=== PATIENT | male | born 1945 | race Caucasian/White ===

== ENCOUNTER 2019-10-08 17:43 | Inpatient (IN) | payer MEDICARE, BC ==
[2019-10-08] VITALS (76 sets, daily range): BP systolic 141; BP diastolic 72; PULSE 86; TEMP 98.2; O2SAT 86–100
[~2019-10-08] VITALS: Ht 188 cm; Wt 97.6 kg
[2019-10-08 18:05] LABS: BASO # 0.1 (0.0-0.2); BASO % 1.1 % (0.0-2.0); EOS # 0.1 (0.0-0.7); EOS % 1.1 % (0-4.0); GRAN # 4.9 (1.4-6.5); GRAN % 64.8 % (42.2-75.2); HEMATOCRIT 43.3 % (42.0-52.0); HEMOGLOBIN 14.9 g/dl (13.5-18.0); LYMPH # 1.7 (1.2-3.4); LYMPH % 22.7 % (20.0-51.0); MEAN CELL VOLUME 97 fl (80.0-100.0); MEAN CORPUSCULAR HEMOGLOBIN 33 pg (27.0-31.0); MEAN CORPUSCULAR HGB CONC 34 g/dl (33.0-37.0); MEAN PLATELET VOLUME 8.9 fl (7.4-10.4); MONO # 0.8 (0.1-0.6); PLATELET COUNT 216 K/mm3 (130-400); RED BLOOD COUNT 4.47 M/mm3 (4.20-5.60); REDCELL DISTRIBUTION WIDTH-CV 12.9 % (11.5-14.5)
[2019-10-08 18:09] LABS: INR 1.1 (0.8-3.0); PROTHROMBIN TIME 12.8 SECONDS (9.7-12.8)
[2019-10-08 18:12] LABS: PARTIAL THROMBOPLASTIN TIME 29.9 SECONDS (26.0-37.0)
[2019-10-08 18:14] LABS: ALBUMIN 4.6 gm/dL (3.5-5.0); BILIRUBIN,TOTAL 0.8 mg/dL (0.0-1.0); CALCIUM 9.5 mg/dL (8.4-10.2); CREATININE, serum 1.02 (0.66-1.25); POTASSIUM 4.2 mmol/L (3.4-5.0); TOTAL PROTEIN 8.4 gm/dL (6.4-8.2)
[2019-10-08 18:25] LABS: TROPONIN-I 0.017 ng/mL (0.000-0.035)
[2019-10-08 20:13] LABS: MAGNESIUM 2.1 mg/dL (1.6-2.3)
[2019-10-08 20:26] LABS: TROPONIN-I 0.02 ng/mL (0.000-0.035)
[2019-10-08 20:45] LABS: THYROID STIMULATING HORMONE 1.59 uIU/mL (0.465-4.680)
--- NOTE | 2019-10-08 22:15 | NUR ---
RECEIVED REPORT FROM DAMON RUVALCABA IN ER. AWAITING ARRIVAL TO ICU 5.
--- NOTE | 2019-10-08 22:30 | NUR ---
PT ARRIVED VIA STRETCHER ON PORTAL HEALTH SCIENCE INSTRUCTOR AND CARDIZEM GTT, SEE FLOW TITRATIONS. PT ON RA. PLACED ON BEDSIDE CONTINUOUS MONITOR. CALL LIGHT EDUCATION GIVEN, VERBALIZED UNDERSTANDING. URINAL WITHIN REACH.
--- NOTE | 2019-10-08 23:05 | NUR ---
DR SONI CALLED TO STATES THAT THE CT PE RESULT SHOWED TO PE. BETHANIE ORTIZ NOTIFIED. SPOKE TO BETHANIE ORTIZ ABOUT PT'S HR 70s-LOW 80s. PHYSICIAN STATES KEEP GTT AT 2.5 MG/HR FROM ER AND SHUT OFF IF DROP INTO 60s AND SUSTAINS. HR RYTHYM STILL IRREGULAR AT THIS TIME.
[2019-10-09] VITALS (779 sets, daily range): BP systolic 110–157; BP diastolic 62–98; PULSE 62–105; TEMP 98.2–98.7; O2SAT 92–100
[2019-10-09 05:15] LABS: BASO # 0.1 (0.0-0.2); BASO % 1.1 % (0.0-2.0); EOS # 0.1 (0.0-0.7); EOS % 1.8 % (0-4.0); GRAN # 3.4 (1.4-6.5); GRAN % 54.4 % (42.2-75.2); HEMATOCRIT 42.1 % (42.0-52.0); LYMPH # 1.9 (1.2-3.4); LYMPH % 30.3 % (20.0-51.0); MEAN CELL VOLUME 99 fl (80.0-100.0); MEAN CORPUSCULAR HEMOGLOBIN 33 pg (27.0-31.0); MEAN CORPUSCULAR HGB CONC 33 g/dl (33.0-37.0); MEAN PLATELET VOLUME 9.4 fl (7.4-10.4); MONO # 0.8 (0.1-0.6); MONO % 12.1 % (1.7-9.3); PLATELET COUNT 183 K/mm3 (130-400); RED BLOOD COUNT 4.24 M/mm3 (4.20-5.60); REDCELL DISTRIBUTION WIDTH-CV 13.2 % (11.5-14.5)
[2019-10-09 05:23] LABS: CALCIUM 9.1 mg/dL (8.4-10.2); CREATININE, serum 0.84 (0.66-1.25); POTASSIUM 3.9 mmol/L (3.4-5.0)
--- NOTE | 2019-10-09 07:00 | NUR ---
BEDSIDE REPORT RECEIVED FROM DAMON MCKOY PATIENT CURRENTLY AFIB WITH HR 90-100s. PATIENT HAS NO COMPLAINTS. WILL CONTINUE TO MONITOR.
--- NOTE | 2019-10-09 09:30 | NUR ---
JR/CV CANCELLED D/T PATIENT BEING IN SINUS RHYTHM, PER DR. GAONA
--- NOTE | 2019-10-09 11:44 | NUR ---
Cutting Room Supervisor met with patient to discuss discharge planning. Patient lives in [place] with his significant other, Yoel (ph#[phone]) who is at bedside. Patient and Yoel report they are not . Patient has not seen a primary care physician for quite some time, but did see Mabel Tolbert PA-C at [facility] shortly before admission to the hospital. Patient states he would like to continue seeing Mabel Tolbert, but was also interested in obtaining a list of primary care providers in [place]. SW provided. Patient states he doesn't take any medications regularly but would prefer to start getting any needed medications at [facility] instead of [facility], where he would normally get medications as needed. Patient does not have Advance Directives but was interested in obtaining the form. SW provided. Patient's next of kin would be his children, Madisyn (ph#[phone]), Ry, and Kiran. Patient states Madisyn lives in [place], Ry lives in [place], and Kiran lives in [place]. Patient does not use any DME and reports independence with ADLS. SW to continue to monitor for any discharge needs.
--- NOTE | 2019-10-09 13:20 | NUR ---
QTC POST 1ST DOSE IS 454. INITIAL QTC WAS 482
--- NOTE | 2019-10-09 18:33 | NUR ---
Pt resting in the room, up from the ICU this afternoon, med rec complete.
--- NOTE | 2019-10-09 20:00 | NUR ---
At time of assessment, patient is alert and oriented. Heart sounds are regular/normal, lungs clear, no edema or pain. Qtc is 454 and sotalol is adminsitered. No new concerns at this time, will continue to monitor.
[2019-10-10] VITALS (12 sets, daily range): BP systolic 107–139; BP diastolic 63–80; PULSE 45–63; TEMP 97.4–97.9
--- NOTE | 2019-10-10 06:11 | NUR ---
Uneventful and restful night. No new concerns. Patient educated on NPO after midnight status and plans for Lexiscan today.
[2019-10-10 06:49] LABS: BASO # 0.1 (0.0-0.2); BASO % 1.1 % (0.0-2.0); EOS # 0.3 (0.0-0.7); EOS % 4.9 % (0-4.0); GRAN # 3.9 (1.4-6.5); GRAN % 60.2 % (42.2-75.2); HEMATOCRIT 41.2 % (42.0-52.0); HEMOGLOBIN 13.5 g/dl (13.5-18.0); LYMPH # 1.5 (1.2-3.4); LYMPH % 22.9 % (20.0-51.0); MEAN CELL VOLUME 101 fl (80.0-100.0); MEAN CORPUSCULAR HEMOGLOBIN 33 pg (27.0-31.0); MEAN CORPUSCULAR HGB CONC 33 g/dl (33.0-37.0); MEAN PLATELET VOLUME 9.6 fl (7.4-10.4); MONO # 0.7 (0.1-0.6); MONO % 10.6 % (1.7-9.3); PLATELET COUNT 181 K/mm3 (130-400); RED BLOOD COUNT 4.07 M/mm3 (4.20-5.60); REDCELL DISTRIBUTION WIDTH-CV 13.2 % (11.5-14.5)
[2019-10-10 07:00] LABS: CALCIUM 9.4 mg/dL (8.4-10.2); CREATININE, serum 0.93 (0.66-1.25); MAGNESIUM 2.2 mg/dL (1.6-2.3); POTASSIUM 4.4 mmol/L (3.4-5.0)
--- NOTE | 2019-10-10 07:20 | NUR ---
Pt reports feeling anxious about the stress test this morning, asking for medication that he received yesterday to help with relaxing. PRN Xanax administered per orders. Testing planned for approx 0800. No further needs reported. Call light in reach.
--- NOTE | 2019-10-10 08:00 | NUR ---
Pt to [facility] for testing via .
--- NOTE | 2019-10-10 09:45 | NUR ---
Pt back to room following testing, ambulating in room with steady gait. Sched meds administered per orders. Pt asking about food, this nurse reviews plan to maintain NPO status until results have returned on test. Pt verbalizes understanding. Call light in reach.
--- NOTE | 2019-10-10 19:11 | NUR ---
Report with DAMON Ennis. Pt sitting up in chair, denies pain or needs. Call light in reach.
--- NOTE | 2019-10-10 20:11 | NUR ---
Sitting in recliner. Assessment complete. Lungs clear. Heart sounds normal. Bowels active x4. Pulses present throughout. No edema noted at this time. INT right hand and right forearm both flushed without complications. Denies pain at this time. Denies needs. Call light in reach.
--- NOTE | 2019-10-10 22:36 | NUR ---
Resting in recliner. Denies needs. Call light in reach.
--- NOTE | 2019-10-10 23:52 | NUR ---
Resting in recliner. Denies needs. Call light in reach.
--- NOTE | 2019-10-11 02:04 | NUR ---
Resting in bed asleep. Call light in reach.
[2019-10-11 04:06] VITALS: BP 112/65; PULSE 52; TEMP 97.7
--- NOTE | 2019-10-11 04:15 | NUR ---
Resting in bed. Denies needs. Call light in reach.
--- NOTE | 2019-10-11 05:54 | NUR ---
Patient had unevenful night. Resting in recliner this AM. Denies needs. Call light in reach.
--- NOTE | 2019-10-11 07:08 | NUR ---
Report given to DAMON Lundberg
[2019-10-11 07:35] LABS: BASO # 0.1 (0.0-0.2); BASO % 0.7 % (0.0-2.0); EOS # 0.3 (0.0-0.7); EOS % 4.3 % (0-4.0); GRAN # 4.5 (1.4-6.5); GRAN % 65.8 % (42.2-75.2); HEMATOCRIT 40.5 % (42.0-52.0); HEMOGLOBIN 13.6 g/dl (13.5-18.0); LYMPH # 1.3 (1.2-3.4); LYMPH % 19.7 % (20.0-51.0); MEAN CELL VOLUME 100 fl (80.0-100.0); MEAN CORPUSCULAR HEMOGLOBIN 34 pg (27.0-31.0); MEAN CORPUSCULAR HGB CONC 34 g/dl (33.0-37.0); MEAN PLATELET VOLUME 9.7 fl (7.4-10.4); MONO # 0.6 (0.1-0.6); MONO % 9.4 % (1.7-9.3); PLATELET COUNT 194 K/mm3 (130-400); RED BLOOD COUNT 4.06 M/mm3 (4.20-5.60)
[2019-10-11 07:58] LABS: CALCIUM 9.3 mg/dL (8.4-10.2); CREATININE, serum 0.88 (0.66-1.25); MAGNESIUM 2.2 mg/dL (1.6-2.3); POTASSIUM 4.2 mmol/L (3.4-5.0)
--- NOTE | 2019-10-11 08:00 | NUR ---
Pt being cared for by DAMON Hein orienting and this nurse.
[2019-10-11 08:46] VITALS: BP 136/70; PULSE 61; TEMP 97.4
[2019-10-11] MEDS ORDERED: ELIQUIS 5MG PO (11:00)
[2019-10-11] MEDS ORDERED: BETAPACE 80MG80 MG PO (11:01)
[2019-10-11 12:07] VITALS: BP 137/81; PULSE 52; TEMP 97.5
--- NOTE | 2019-10-11 13:14 | NUR ---
Pt assessment completed and charted, alert, oriented, independent, roomair. Morning medications given as per JUN. I/V line flushed without complications. No N/V/D, pain, numbness, tingling, SOB at this time as per pt. No further needs at this time.
--- NOTE | 2019-10-11 15:27 | NUR ---
Pt discharge procedure completed, I/V canula and tele taken out. Provided discharge education by DAMON Calderón and dropped him along with his daughter to the ER department.
[2019-10-11] MEDS ORDERED: XARELTO20 MG PO (15:39)
== END 2019-10-11 15:15 | disposition home or self-care (01) | DRG 310 ==
LOC: COL.ER 17:43 → MEDICAL 21:34 → ICU 21:34 → MEDICAL 10-09 14:45
PROVIDERS: Family Medicine; Nurse Practitioner Family; ADMIT Student in an Organized Health Care Education/Training Program
DX: I48.91 Unspecified atrial fibrillation (principal); I10 Essential (primary) hypertension; R06.00 Dyspnea, unspecified; F41.9 Anxiety disorder, unspecified; R79.89 Other specified abnormal findings of blood chemistry; Z20.828 Contact with and (suspected) exposure to other viral communicable diseases
CPT/HCPCS: 99223-AI; 99232-AI; 99239; A9500; J2060; J2704; J2785; J7030; Q9967

== ENCOUNTER 2021-07-26 07:25 | Day surgery (SDC) | payer MEDICARE, BC ==
[~2021-07-26] VITALS: Ht 188 cm; Wt 96.3 kg
[2021-07-26] VITALS (14 sets, daily range): BP systolic 92–196; BP diastolic 48–101; PULSE 52–96; TEMP 80–98.4
[~2021-07-26 07:25] MED LIST: BETAPACE 80MG80 MG PO; ELIQUIS 5MG PO; XARELTO20 MG PO
[2021-07-26 08:34] LABS: BASO # 0.1 K/mm3 (0.0-0.2); EOS # 0.1 K/mm3 (0.0-0.7); EOS % 2.4 % (0.0-4.0); GRAN # 3.2 K/mm3 (1.4-6.5); GRAN % 63.4 % (42.2-75.2); LYMPH # 1.1 K/mm3 (1.2-3.4); LYMPH % 22.8 % (20.0-51.0); MEAN CELL VOLUME 96 fl (80.0-100.0); MEAN CORPUSCULAR HEMOGLOBIN 33 pg (27-31); MEAN CORPUSCULAR HGB CONC 34 g/dl (33.0-37.0); MONO # 0.5 K/mm3 (0.1-0.6); MONO % 10.2 % (1.7-9.3); PLATELET COUNT 155 K/mm3 (130-400); RED BLOOD COUNT 3.37 M/mm3 (4.20-5.60); REDCELL DISTRIBUTION WIDTH-CV 12.7 % (11.5-14.5)
[2021-07-26 08:42] LABS: HEMATOCRIT 32.5 % (42.0-52.0)
[2021-07-26 08:50] LABS: CALCIUM 9.3 mg/dL (8.4-10.2); CREATININE, serum 1.02 mg/dL (0.72-1.25); POTASSIUM 4.4 mmol/L (3.5-4.5)
[2021-07-26] MEDS ORDERED: BETAPACE 80MG80 MG PO (08:50)
[2021-07-26] MEDS ORDERED: PRIL40 PO (08:51)
[2021-07-26] MEDS ORDERED: XARELTO20 MG PO (08:51)
[2021-07-26 08:52] LABS: INR 1.2 (0.8-3.0); PROTHROMBIN TIME 13.1 SECONDS (9.7-12.8)
[2021-07-26] MEDS ORDERED: NORVASC 5MG5 MG/TAB PO (08:55)
[2021-07-26] MEDS ORDERED: ATARAX 25MG25 MG/TAB PO (08:56)
[2021-07-26] MEDS ORDERED: LASIX 40MG TABL40 MG PO (08:58)
[2021-07-26] MEDS ORDERED: TESSALON P100 MG/CAP PO (08:58)
[2021-07-26] MEDS ORDERED: SINGULAIR 110 MG/TAB PO (08:58)
[2021-07-26] MEDS ORDERED: MELATIN 3 MG-11 TAB PO (09:02)
[2021-07-26] MEDS ORDERED: K-TAB20 PO (09:02)
[2021-07-26] MEDS ORDERED: MULTI VITAMINS1 TAB PO (09:03)
[2021-07-26] MEDS ORDERED: MASON NATURAL1200 MG PO (09:03)
--- NOTE | 2021-07-26 09:59 | NUR ---
Pt to procedure,report DAMON Alex.
--- NOTE | 2021-07-26 11:02 | NUR ---
PATIENT ALERT AND ORIENTED, DAUGHTER IN WAITING ROOM. NO REPORTS OF CHEST PAIN OR DISCOMFORT BUT PATIENT DOES REPORT CHRONIC BACK AND LEG DISCOMFORT. PATIENT VERBALIZES UNDERSTANDING PROCEDURE. PLEASE SEE MERGE FOR SPECIFIC DETAILS REGARDING CASE WELL ALL HEMODYNAMIC MONITORING AND MEDICATION ADMINISTRATION AND SEDATION MONITORING.
--- NOTE | 2021-07-26 13:03 | NUR ---
Pt to room 356,report to Kendall Osuna.
--- NOTE | 2021-07-26 13:05 | NUR ---
PT ARRIVED ON UNIT. ADMISSION INTAKE AND ASSESSMENT COMPLETED. ORIENTED PT TO ROOM. WILL CONTINUE TO MONITOR.
--- NOTE | 2021-07-27 02:23 | NUR ---
S/P PACEMAKER, SLING TO LEFT ARM. DSG TO LEFT UPPER CHEST C/D/I. PT ANTICIPATES DC TO HOME TODAY. FAMILY AT BEDSIDE AT SHIFT CHANGE. PT SLEEOING IN RECLINER STATES HE DOES AT HOME TO BED IS NOT COMFORTABLE. DENIES ANY PAIN. CALL LIGHT WI REACH.
[2021-07-27 04:22] VITALS: BP 107/57; PULSE 72; TEMP 98
[2021-07-27 07:37] VITALS: BP 104/68; PULSE 78; TEMP 98.6
--- NOTE | 2021-07-27 08:06 | NUR ---
Pt assessment complete. Pt is up independently in the room. He is A/O x4. His breathing is even and unlabored on RA. Pt denies SOB. No pain at this time. Pt denies any N/V. Site to L upper chest CDI, discussed L arm restrictions with patient. Currently has sling in place. Pt eager to discharge home. No needs at this time. Call light within reach.
--- NOTE | 2021-07-27 09:43 | NUR ---
Social Work student met with patient to discuss discharge planning. Patient's friend, Yoel, and son, Kiran, were at bedside during the intake. Patient lives here in [place]. Patient sees Dr. Ethan Gay for primary care. [facility] and states he has no difficulty with cost. Patient states that he uses a walking stick when he goes outside, but around the house he utilizes no durable medical equiptment. Patient states that he is independent with his ADL's. Patient states that he has not filled out a DPOA-HC, and that he is not interested in completing one at this time. SW student found next of kin. Patient is not and has three kids: Kiran([phone]), Ry, and Madisyn. *Discharge plan: Home*
[2021-07-27] MEDS ORDERED: BETAPACE 80MG80 MG PO (10:18)
[2021-07-27] MEDS ORDERED: CLEOCIN HC150 MG/CAP PO (10:21)
--- NOTE | 2021-07-27 11:14 | NUR ---
Discharge paperwork and instructions reviewed with patient. All questions answered at this time. IV to LFA dc'd. Pt wheeled out of facility at this time.
--- NOTE | 2021-07-27 11:38 | NUR ---
First visit from the municipal bond trader. No needs right now.
== END 2021-07-27 11:25 | disposition home or self-care (01) ==
LOC: COL.CAR 07:25 → MEDICAL 13:29 → COL.CAR 07-27 11:25
PROVIDERS: Internal Medicine Cardiovascular Disease
DX: I48.0 Paroxysmal atrial fibrillation (principal); R00.1 Bradycardia, unspecified; I48.92 Unspecified atrial flutter; I49.3 Ventricular premature depolarization; R60.0 Localized edema; I34.0 Nonrheumatic mitral (valve) insufficiency; I35.1 Nonrheumatic aortic (valve) insufficiency; I10 Essential (primary) hypertension; T50.1X6A Underdosing of loop [high-ceiling] diuretics, initial encounter; T50.3X6A Underdosing of electrolytic, caloric and water-balance agents, initial encounter; Z91.128 Patient's intentional underdosing of medication regimen for other reason; Y92.9 Unspecified place or not applicable; Z79.01 Long term (current) use of anticoagulants; Z79.899 Other long term (current) drug therapy
CPT/HCPCS: OP; C1785; C1894; C1898; J2250; J3010; J3370; J7030; J7050; Q9967

== ENCOUNTER 2021-09-15 11:09 | Day surgery (SDC) | payer MEDICARE, BC ==
[~2021-09-15 11:09] MED LIST changes: +ATARAX 25MG25 MG/TAB PO; +CLEOCIN HC150 MG/CAP PO; +K-TAB20 PO; +LASIX 40MG TABL40 MG PO; +MASON NATURAL1200 MG PO; +MELATIN 3 MG-11 TAB PO; +MULTI VITAMINS1 TAB PO; +NORVASC 5MG5 MG/TAB PO; +PRIL40 PO; +SINGULAIR 110 MG/TAB PO; +TESSALON P100 MG/CAP PO
[2021-09-15] MEDS ORDERED: BETAPACE 120MG120 MG PO (12:14)
--- NOTE | 2021-09-15 12:17 | NUR ---
Procedure cancelled per Dr Khanna
[2021-09-15] MEDS ORDERED: BETAPACE160 MG PO (12:40)
[2021-09-15 12:54] LABS: HEMATOCRIT 39.6 % (42.0-52.0); MEAN CELL VOLUME 98 fl (80.0-100.0); MEAN CORPUSCULAR HEMOGLOBIN 32 pg (27-31); MEAN CORPUSCULAR HGB CONC 33 g/dl (33.0-37.0); MEAN PLATELET VOLUME 9.4 fl (7.4-10.4); PLATELET COUNT 160 K/mm3 (130-400); RED BLOOD COUNT 4.04 M/mm3 (4.20-5.60); REDCELL DISTRIBUTION WIDTH-CV 13.7 % (11.5-14.5)
[2021-09-15 13:06] LABS: INR 1.7 (0.8-3.0); PROTHROMBIN TIME 19.3 SECONDS (9.7-12.8)
[2021-09-15 13:09] LABS: PARTIAL THROMBOPLASTIN TIME 35.7 SECONDS (26.0-37.0)
--- NOTE | 2021-09-15 13:10 | NUR ---
Discharge instructions given to pt.Pt verbalizes understanding.Pt escorted out by this nurse.
[2021-09-15 13:19] LABS: CALCIUM 9.2 mg/dL (8.4-10.2); CREATININE, serum 1.11 mg/dL (0.72-1.25); MAGNESIUM 2.2 mg/dL (1.6-2.6); POTASSIUM 4.5 mmol/L (3.5-4.5)
[2021-09-15 13:38] LABS: THYROID STIMULATING HORMONE 1.897 uIU/mL (0.350-4.940)
== END 2021-09-15 14:03 ==
LOC: COL.CAR 11:09
PROVIDERS: Internal Medicine Adult Congenital Heart Disease
DX: I48.19 Other persistent atrial fibrillation (principal); I10 Essential (primary) hypertension; I08.0 Rheumatic disorders of both mitral and aortic valves; G20 Parkinson's disease; R60.0 Localized edema; Z79.899 Other long term (current) drug therapy; Z79.01 Long term (current) use of anticoagulants; Z53.8 Procedure and treatment not carried out for other reasons

== ENCOUNTER 2023-06-14 15:23 | Emergency (ER) | payer MEDICARE, BC ==
[~2023-06-14] VITALS: Ht 188 cm; Wt 92.3 kg
[~2023-06-14 15:23] MED LIST changes: +BETAPACE 120MG120 MG PO; +BETAPACE160 MG PO
[2023-06-14] MEDS ORDERED: NS 1,000 ML IV ONE (18:00)
[2023-06-14 18:47] LABS: BASO % 0.6 % (0.0-2.0); EOS # 0.1 K/mm3 (0.0-0.7); EOS % 1.3 % (0.0-4.0); GRAN # 4.7 K/mm3 (1.4-6.5); HEMATOCRIT 37.9 % (42.0-52.0); HEMOGLOBIN 12.9 g/dl (13.5-18.0); LYMPH # 1.1 K/mm3 (1.2-3.4); LYMPH % 16.6 % (20.0-51.0); MEAN CELL VOLUME 96 fl (80.0-100.0); MEAN CORPUSCULAR HEMOGLOBIN 33 pg (27-31); MEAN CORPUSCULAR HGB CONC 34 g/dl (33.0-37.0); MEAN PLATELET VOLUME 9.1 fl (7.4-10.4); MONO # 0.9 K/mm3 (0.1-0.6); MONO % 13.1 % (1.7-9.3); PLATELET COUNT 193 K/mm3 (130-400); RED BLOOD COUNT 3.95 M/mm3 (4.20-5.60)
[2023-06-14 18:58] LABS: INR 1.9 (0.8-3.0); PROTHROMBIN TIME 19.9 SECONDS (9.7-12.8)
[2023-06-14 19:03] LABS: ALKALINE PHOSPHATASE 73 U/L (40-150); ANION GAP 10 mmol/L (7-16); AST,SGOT 18 U/L (5-34); BILIRUBIN,TOTAL 0.7 mg/dL (0.2-1.2); BLOOD UREA NITROGEN 22 mg/dL (8-26); CALCIUM 9.7 mg/dL (8.4-10.2); CARBON DIOXIDE 24 mmol/L (23-31); CHLORIDE 108 mmol/L (98-107); CREATININE, serum 0.97 mg/dL (0.72-1.25); GLUCOSE 107 mg/dL (70-99); POTASSIUM 3.9 mmol/L (3.5-4.5); SODIUM 142 mmol/L (136-145); TOTAL PROTEIN 7.4 gm/dL (6.2-8.1)
[2023-06-14 19:16] LABS: ALANINE AMINOTRANSFERASE < 6 U/L (0-55); TROPONIN-I < 0.010 ng/mL (0.00-0.033)
[2023-06-14 20:24] LABS: URINE APPEARANCE CLEAR (CLEAR/HAZY); URINE BLOOD NEGATIVE (NEGATIVE); URINE COLOR Dark Yellow (YELLOW); URINE GLUCOSE NEGATIVE (NEGATIVE); URINE KETONE NEGATIVE (NEGATIVE); URINE NITRATE NEGATIVE (NEGATIVE); URINE PROTEIN(semi-quant) NEGATIVE (NEGATIVE)
[2023-06-14 20:47] LABS: COLLECTION METHOD CATHETER
[2023-06-14 20:58] VITALS: BP 157/89; PULSE 70; TEMP 98.5
== END 2023-06-14 20:58 | disposition home or self-care (01) ==
LOC: COL.ER 15:23
PROVIDERS: Physician Assistant
DX: R41.0 Disorientation, unspecified (principal); G20.A1 Parkinson's disease without dyskinesia, without mention of fluctuations; I48.91 Unspecified atrial fibrillation; Z79.01 Long term (current) use of anticoagulants; Z95.0 Presence of cardiac pacemaker; Z79.899 Other long term (current) drug therapy
CPT/HCPCS: J7030